=== PATIENT | female | born 1975 | race Asian ===

== ENCOUNTER 2016-10-27 15:27 | Emergency (ER) | payer SELFPAY ==
[~2016-10-27] VITALS: Ht 149.9 cm; Wt 46.9 kg
[~2016-10-27 15:27] MED LIST: BACTRIM,SEPT1 TABLET PO; CIPRO500 MG PO; FLEXERIL10 MG PO; NAPROSYN500 MG PO; NOHOMEMEDS; PERCOCET 7.51 TABLET PO; PREDNISONE50 MG PO; PYRIDIUM200 MG PO; ULTRACET1 TABLET PO; ULTRAM50 MG PO; ZOFRAN4 MG PO; celeXA PO
[2016-10-27 16:04] LABS: HEMATOCRIT 31.7 % (36.0-46.0); MCH 25.5 PG (29.0-34.0); MCHC 31.5 G/DL (30.0-36.0); MCV 80.9 FL (83-99); MEAN PLAT.VOLUME 9.6 uM^3 (9.5-12.4); PLATELET COUNT 303 K/uL (156-360); RBC DIS.WIDTH-CV 14.2 % (11.8-14.6); RBC DIS.WIDTH-SD 41.1 % (39-53); RED BLOOD COUNT 3.92 M/uL (3.80-5.20); WHITE BLOOD COUNT 5.8 K/uL (4.1-10.2)
[2016-10-27 16:13] LABS: CHLORIDE 107 mEq/L (99-109); POTASSIUM 3.3 mEq/L (3.7-5.4); SODIUM 138 mEq/L (136-147)
[2016-10-27 16:14] LABS: GLUCOSE 120 mg/dL (70-99)
[2016-10-27 16:16] LABS: ANION GAP 9 MEQ/L (2-14)
[2016-10-27 16:18] LABS: GFR ESTIMATE (CALCULATED) > 59 mL/min/
[2016-10-27 16:19] LABS: UREA NITROGEN (BUN) 10 mg/dL (9-23)
[2016-10-27 16:27] LABS: QUANTITATIVE HCG < 4.0 MIU/ML
[2016-10-27 17:11] LABS: ADD MIUA? NO; BILIRUBIN NEGATIVE; BLOOD NEGATIVE; COLOR YELLOW ((YELLOW)); GLUCOSE (STRIP) NEGATIVE; KETONES NEGATIVE; LEUKOCYTES NEGATIVE; NITRITE NEGATIVE; PROTEIN (STRIP) NEGATIVE; SPECIFIC GRAVITY 1.018 (1.000-1.030); UCUL ADDED? NO; UROBILINOGEN 0.2 MG/DL (0.2-1.0)
[2016-10-27] MEDS ORDERED: BENTYL20 MG PO (18:34)
[2016-10-27] MEDS ORDERED: ZOFRAN ODT4 MG PO (18:34)
[2016-10-27] MEDS ORDERED: MIRALAX255 GM PO (18:34)
[2016-10-27] MEDS ORDERED: NAPROSYN500 MG PO (18:34)
[2016-10-27 18:53] VITALS: BP 104/70
== END 2016-10-27 18:54 | disposition home or self-care (01) ==
LOC: EME 15:27
DX: K59.00 Constipation, unspecified (principal); R10.32 Left lower quadrant pain; J45.909 Unspecified asthma, uncomplicated; Z87.442 Personal history of urinary calculi; F17.200 Nicotine dependence, unspecified, uncomplicated
CPT/HCPCS: 74176; 80048; 81003; 84702; 85027; 99281; 99284; J1885

== ENCOUNTER 2016-12-30 14:05 | Emergency (ER) | payer SELFPAY ==
[~2016-12-30 14:05] MED LIST changes: +BENTYL20 MG PO; +MIRALAX255 GM PO; +ZOFRAN ODT4 MG PO
== END 2016-12-30 14:45 | disposition left against medical advice (07) ==
LOC: EME 14:05
DX: R06.02 Shortness of breath (principal); Z53.21 Procedure and treatment not carried out due to patient leaving prior to being seen by health care provider